=== PATIENT | male | born 1965 | race Caucasian/White ===

== ENCOUNTER → 2020-03-28 10:58 | Outpatient (CLI) | payer BC, SELFPAY ==
[2020-03-28 10:43] VITALS: BMI 31.3
--- NOTE | 2020-03-28 11:00 | RAD_ITS ---
STUDY: X-RAY - RIGHT KNEE REASON FOR EXAM: Male, 54 years old. BILATERAL KNEE PAIN TECHNIQUE: 4 view(s) of the knee. COMPARISON: None. FINDINGS: Normal visualized distal femur. Normal visualized proximal tibia and fibula. Normal proximal tibiofibular articulation. Normal medial femorotibial compartment. Normal lateral femorotibial compartment. Normal patellofemoral articulation. The soft tissue structures are unremarkable. RAD/Knee 4 or More Views IMPRESSION: Normal x-ray examination of the knee. Electronically Signed: Gerardo Coe MD at 17:41 EDT , Service support ,
--- NOTE | 2020-03-28 11:00 | RAD_ITS ---
STUDY: X-RAY - LEFT KNEE REASON FOR EXAM: Male, 54 years old. BILATERAL KNEE PAIN TECHNIQUE: 4 view(s) of the knee. COMPARISON: None. FINDINGS: Normal visualized distal femur. Normal visualized proximal tibia and fibula. Normal proximal tibiofibular articulation. Normal medial femorotibial compartment. Normal lateral femorotibial compartment. Normal patellofemoral articulation. The soft tissue structures are unremarkable. RAD/Knee 4 or More Views IMPRESSION: Normal x-ray examination of the knee. Electronically Signed: Gerardo Coe MD at 17:41 EDT , Service support ,
== END ==
PROVIDERS: Referring Provider Orthopaedic Surgery; Visit Provider Orthopaedic Surgery
DX: M25.561 Pain in right knee (principal); M25.562 Pain in left knee
CPT/HCPCS: 73564

== ENCOUNTER → 2020-04-14 09:27 | Outpatient (CLI) | payer BC, SELFPAY ==
[2020-03-28 10:43] VITALS: BMI 31.3
--- NOTE | 2020-04-14 09:28 | MRI_ITS ---
STUDY: MRI LEFT KNEE REASON FOR EXAM: Medial knee pain for 5 years, no specific injury. TECHNIQUE: Standardized fat and water weighted pulse sequences were obtained in all 3 orthogonal planes. COMPARISON: Radiographs 03/28/2020. FINDINGS: There is a horizontal tear of the inferior articular surface of the posterior horn of the medial meniscus (proton-density coronal image 14; proton density sagittal images 11-15) with a very small parameniscal cyst (T2 sagittal image 9). Normal hyaline cartilage of the medial femorotibial compartment. Normal medial femoral condyle and tibial plateau. There is mild periligamentous inflammation of the medial collateral ligament (T2 coronal image 16). Normal distal semimembranosus, gracilis and semitendinosus tendons. Normal lateral meniscus. Normal hyaline cartilage of the lateral femorotibial compartment. Normal lateral femoral condyle and tibial plateau. Normal proximal tibiofibular articulation. Normal lateral collateral (fibular) ligament. Normal popliteus tendon. Normal biceps femoris tendon. Normal anterior cruciate ligament (ACL). Normal posterior cruciate ligament (PCL). Normal congruent patellofemoral articulation. Normal hyaline cartilage of the patellofemoral compartment. Normal medial and lateral patellar retinaculum. Normal visualized quadriceps tendon. Normal patellar tendon. Normal Hoffa''s fat pad. There is a very small joint effusion. There is a thin medial patellar plica. The soft tissues are unremarkable. There is a mostly osseous fused bipartite patella (proton density coronal image 29). MRI/Lower Ext Joint Only (Routine) IMPRESSION: Medial meniscal tear. Mild periligamentous inflammation of the medial collateral ligament. Very small joint effusion. Mostly osseous fused bipartite patella. Electronically Signed: Victor Manuel Anders MD at 11:22 EDT Tel , Service support ,
== END ==
PROVIDERS: Referring Provider Orthopaedic Surgery; Visit Provider Orthopaedic Surgery
DX: M23.92 Unspecified internal derangement of left knee (principal)
CPT/HCPCS: 73721

== ENCOUNTER 2020-04-26 05:22 | Day surgery (SDC) | payer BC, SELFPAY ==
[2020-03-28 10:43] VITALS: BMI 31.3
[2020-04-26] VITALS (8 sets, daily range): BP systolic 116–148; BP diastolic 76–107; PULSE 47–66; RESP 16; TEMP 36.1–36.6; O2SAT 93–100; BMI 33.3
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
[2020-04-26] MEDS: Lactated Ringers 1,000 ML 100 ML IV ×2 (09:00→10:41)
[2020-04-26] MEDS: Cefazolin 2 GM in 0.9% Normal Saline 100 ML IV (09:25)
[2020-04-26] MEDS: MethylPREDNISolone Acetate 80 MG/ML Vial (09:46)
[2020-04-26] MEDS: Epinephrine (1 mg/ml) 1 MG/ML VIAL (09:46)
[2020-04-26] MEDS: morphine PF (epidural) 5 MG/10 ML Vial (09:46)
[2020-04-26] MEDS: Bupiv/Epi 0.5% Mpf 30 ML Vial (09:46)
[2020-04-26] MEDS: Bupivacaine 0.5% PF 10 ML VIAL (09:46)
--- NOTE | 2020-04-26 10:19 | DCINST_ITS ---
Discharge Diet: No Restrictions Weight Bearing Status: Weight bearing as tolerated Keep extremity elevated above heart level: Operative Extremity Call your doctor if you observe: Shortness of breath, Chest pain Additional Instructions: Ice and elevate next 72 hours .keep dressing on clean and dry for 48 hours then may remove begin showering daily but do not submerge in tub or pool. After shower may apply Band-Aids . Encourage knee range of motion weightbearing as tolerated, use crutches until confident in knee then may discontinue. No strenuous activity. When not ambulating keep iced and elevated next 72 hours. Call with any questions or concerns. Allergies/Adverse Reactions: Allergies aspirin Allergy (Verified 04/26/20 07:41) nose bleed Medications to take at Discharge Oxycodone [Oxyir] 5 mg PO Q4H PRN PRN #30 tablet 04/26/20 The following prescriptions were given: Oxycodone [Oxyir] 5 mg PO Q4H PRN PRN #30 tablet PRN Reason: Pain Score 4-10/10 Transmission Status: Received by [facility]/pharmacy #[id number] Primary Care Physician: GRABIEL MACK [Other] Test Results: Test results from this visit will be discussed in further detail at your follow- up appointment, if applicable. Please Follow Up With: Juan Alberto Davila DO - 2 weeks
--- NOTE | 2020-04-26 10:21 | OP.PCM_ITS ---
Report of Operation Date of Procedure: 04/26/20 Description of Surgical Findings:: Preop diagnosis: Left knee complex medial meniscus tear posterior horn Postoperative diagnosis: Same Procedure: Left knee arthroscopic partial lateral meniscectomy posterior horn Anesthesia: General Estimated blood loss: 5 mL Tourniquet time: 25 minutes minutes 300 mmHg Complications: none Indication for procedure: 54-year-old male who had ongoing mechanical symptoms despite conservative treatment with MRI evidence of medial meniscus tear wish to proceed with an elective arthroscopic surgery to attempt to alleviate the symptoms. Risk benefits and alternatives of the procedure were reviewed including risk of bleeding infection nerve artery tissue damage need for further surgery continued pain and expected postoperative course. Procedure: The patient was met in the preoperative holding area. The operative extremity was identified by both patient and physician and family and marked. Patient was brought back to the operating room on a wheeled cart and transferred to the operating table in the supine position. Anesthesia was started. A well- padded tourniquet was placed on the operative extremity. A lower extremity leg solorzano was secured to the operative extremity. The contralateral extremity was well-padded and the end of the bed was flexed to 90 degrees. The patient was prepped and draped in the usual sterile fashion. A timeout was called to ensure the proper patient, procedure, and extremity were being contemplated. 0.5% Marcaine with epinephrine was injected into the planned incisional areas under the skin only. An Esmarch was used to exsanguinate the extremity and the tourniquet was inflated. An 11 blade scalpel was used to make a stab incision in the anterior lateral portal. The arthroscope was inserted into the intercondylar notch and inflow and outflow tubes were attached. Arthroscopic visualization began. The medial compartment was entered. An 18-gauge spinal needle was used to establish the placement for anterior medial portal. An 11 blade scalpel was used to make a stab incision. Blunt probe was inserted followed by a meniscal probe. The posterior horn medial meniscus did have horizontal and radial tearing the use of arthroscopic biting instruments and shaver partial medial meniscectomy was performed was not felt the tear had any repairable features the ACL was found to be intact. The lateral compartment was entered free of meniscal or cartilage pathology The arthroscope was switched to the medial portal to complete the procedure. The medial and lateral gutters were inspected and . The patellofemoral joint was inspected possible early grade 1-2 changes of the apex of the patella. There was good patellar tracking. The knee was thoroughly irrigated and drained. An intra-articular injection with 5 cc 0.5% Marcaine plain 2.5 mg of morphine and 40 mg of Depo-Medrol was injected intra-articularly. The arthroscope was removed the portals were closed with 3-0 nylon arthroscopic stitches. Followed by Xeroform 4 x 4's ABDs web roll and an Eric wrap. The tourniquet was let down and the drapes were removed. All counts were correct. The patient was brought back to the PACU in stable condition.
[2020-04-26] MEDS: oxyCODONE 5 MG Tablet PO (11:40)
== END 2020-04-26 12:29 | disposition home or self-care (01) ==
LOC: SDC 05:25 → AC 05:25
PROVIDERS: Anesthesiology; Referring Provider Orthopaedic Surgery; Visit Provider Orthopaedic Surgery
PROC: (CPT 29870; principal; 2020-04-26 09:45)
DX: M23.92 Unspecified internal derangement of left knee (principal); M17.11 Unilateral primary osteoarthritis, right knee; Z79.1 Long term (current) use of non-steroidal anti-inflammatories (NSAID); Z88.6 Allergy status to analgesic agent
CPT/HCPCS: 01400; 29881; 87635; 94799; J7120; J2405; U0003

== ENCOUNTER → 2020-06-13 10:56 | Outpatient (CLI) | payer BC, SELFPAY ==
[2020-05-09 08:28] VITALS: BMI 33.3
--- NOTE | 2020-06-13 11:00 | CT_ITS ---
STUDY: CT RIGHT KNEE WITHOUT CONTRAST REASON FOR EXAM: Male, 54 years old. OSTEOARTHRITIS OF RIGHT KNEE RADIATION DOSAGE (If Supplied By Facility): CTDIvol = ( 18.76 ) mGy, DLP = ( 1255.95 ) mGycm TECHNIQUE: Transaxial CT imaging of the knee was performed. Coronal and sagittal images were reformatted. Individualized dose optimization techniques were used for this CT. COMPARISON: None. FINDINGS: Imaging of the right hip joint was obtained as well. No significant joint space narrowing. No evidence of fracture dislocation. Normal medial femoral condyle and medial tibial plateau. Mild degree of joint space narrowing of the medial compartment of the knee joint. Normal lateral femoral condyle and lateral tibial plateau. There is preservation of the articular joint space of the lateral knee compartment. Normal proximal tibiofibular articulation. There is no joint effusion. The quadriceps tendon is grossly normal. The patellar tendon is grossly normal. Normal Hoffa''s fat pad. The soft tissues are unremarkable. CT/Extremity Lower without Contra IMPRESSION: Mild degree of joint space narrowing involving the medial compartment of the knee joint. Electronically Signed: Beto Marc, at 12:33 EDT , Service support ,
== END ==
PROVIDERS: Referring Provider Orthopaedic Surgery; Visit Provider Orthopaedic Surgery
DX: M17.11 Unilateral primary osteoarthritis, right knee (principal)
CPT/HCPCS: 73700

== ENCOUNTER 2020-07-12 05:22 | Day surgery (SDC) | payer BC, SELFPAY ==
[2020-05-09 08:28] VITALS: BMI 33.3
[2020-07-01 08:09] VITALS: BMI 33.3
--- NOTE | 2020-07-01 11:59 | EKG12_ITS ---
Test Reason : PREOP Blood Pressure : / mmHG Vent. Rate : 050 BPM Atrial Rate : 050 BPM P-R Int : 168 ms QRS Dur : 084 ms QT Int : 430 ms P-R-T Axes : 023 018 017 degrees QTc Int : 392 ms Sinus bradycardia Otherwise normal ECG Confirmed by REENA POE, AMAIRANI ([id number]), film or videotape editor CORBIN REYES ([id number]) on 07/06/2020 10:52:10 AM Referred By: Juan Alberto Davila Confirmed By:SHIRLEY VALLES MD
[2020-07-01 12:50] LABS: Absolute Lymphocyte Count 1.66 X10^3/uL (0.83-4.51); Absolute Neutrophil Count 3.2 X10^3/uL (2.0-7.7); Basophil# 0.02 X10^3/uL; Basophil% 0.4 % (0-1); Eosinophil# 0.03 X10^3/uL; Eosinophils% 0.5 % (0-5); Hematocrit 45.3 % (40-54); Lymphocyte # 1.66 X10^3/ul (4.0); Lymphocyte % 30.4 % (19-41); Mean Corp Hgb Conc 33.1 g/dL (32-36); Mean Corpuscular Hgb 28.8 pg (27.0-32.0); Mean Corpuscular Volume 87.1 fL (80-94); Mean Platelet Vol. 9.2 fl (6.2-12.0); Monocyte# 0.54 X10^3/uL; Monocyte% 9.9 % (0-10); NRBC Flagged by Analyzer 0 % (0-5); Neutrophil # 3.19 X10^3/uL (2.7-7.7); Neutrophil % 58.4 % (47-70); Platelet Count 198 K/mm3 (150-450); RBC Distribution Width CV 12.5 % (11.6-14.6); RBC Distribution Width SD 39.7 fl (35.1-43.9); White Blood Count 5.5 K/mm3 (4.4-11.0)
[2020-07-01 13:01] LABS: Prothrombin Time (Protime)PT. 12.9 SECONDS (11.7-14.9)
[2020-07-01 13:02] LABS: Partial Thromboplast Time 27.9 Seconds (24.1-36.2)
[2020-07-01 13:18] LABS: Anion Gap 3 (5-15); BUN 18 mg/dL (7-18); BUN/Creat Ratio 17.6 RATIO (10-20); Calcium,Total 8.8 mg/dL (8.5-10.1); Chloride 107 mmol/L (98-107); Creatinine, Serum 1.02 mg/dL (0.70-1.30); EST Glomerular Filtration Rate 81 mL/min (>60); Est Glom Filt Rate - Afr Amer 98 mL/min (>60); Glucose 84 mg/dL (74-106); Potassium 3.8 mmol/L (3.5-5.1); Sodium Level 139 mmol/L (136-145)
[2020-07-01 13:25] LABS: Magnesium 2.2 mg/dL (1.6-2.6)
[2020-07-12] VITALS (10 sets, daily range): BP systolic 114–136; BP diastolic 69–99; PULSE 50–98; RESP 16; TEMP 36.2–36.7; O2SAT 93–99; BMI 34.5
[2020-07-12] MEDS: Lactated Ringers 1,000 ML 100 ML IV (06:08)
[2020-07-12] MEDS: Scopolamine 1mg/72hr Patch 1 PATCH TRANSDERM. (06:09)
[2020-07-12] MEDS: Acetaminophen 500 MG Tablet 1000 MG PO ×2 (06:10→14:05)
[2020-07-12] MEDS: Gabapentin 600 MG Tablet PO (06:10)
[2020-07-12] MEDS: Celecoxib 200 MG Capsule 400 MG PO (06:10)
[2020-07-12 06:51] LABS: Bedside Glucose 131 mg/dL (70-110)
[2020-07-12] MEDS: Cefazolin 2 GM in 0.9% Normal Saline 100 ML IV (07:15)
--- NOTE | 2020-07-12 07:16 | HP.PCM_ITS ---
History and Physical Date of Admission: 07/12/20 Intake Vital Signs 07/01/20 BMI 33.3 Intake Visit Reasons: right knee Allergies aspirin Allergy (Verified 06/28/20 12:05) nose bleed PFSH Medical History (Updated 07/01/20 @ 11:06 by Maria De Jesus Aviles) Hx of gout (Inactive) Social History (Updated 07/01/20 @ 11:[address] Juan Alberto Davila DO) Smoking Status: Never smoker HPI right knee: Details: Parts of this documentation were recorded by a scribe, this documentation accurately reflects the service provided and the decisions made by me, Dr. Juan Alberto Davila DO 07/01/20 0809. ZACARIAS BROWN is a 54 year old M here today for right knee IOVERA treatment. Patient is here for the treatment today and he is here to sign surgery for the right total knee. DOS is scheduled for 07/12/2020. Patient continues to have right knee pain. Denies numbness, tingling or other associated symptoms. ROS Musc Reports joint pain, Reports joint swelling, Reports limited joint movement, Denies numbness, Denies radiating pain into limb, Reports stiffness, Denies tingling Skin/Breast Denies lesions, Denies rash, Denies skin pain, Denies skin swelling Neuro No numbness, No tingling Ortho Exam Right Knee Skin/Wound: No erythema, No ecchymosis, No swelling Homans Sign: No Knee ROM: Yes ROM-Extension -20 to 0, Yes ROM-Flexion 0-140 Examination: No Med jt line tenderness, No Lat jt line tenderness, No Harry's Test Stability: NML: Anterior Drawer, NML: Posterior Drawer, NML: Valgus 30, 1+: Varus 30 Patella Translation: 1 Patella Grind: Yes KNEE: There is pain with patellar grind Left Knee Date of Surgery: 04/26/20 Skin/Wound: Yes ecchymosis (faint fadding), No erythema, No swelling Knee ROM: Yes ROM-Extension -20 to 0, No ROM-Flexion 0-140 (100) Patella Translation: 1 KNEE: no joint effusion no s/sx of infection Office Procedures Iovera Details:: Preoperative diagnosis :right knee OA Postoperative diagnosis: Same Procedure: Cryotherapy with Iovera device to anterior femoral cutaneous nerve and 2 branches of the infrapatellar saphenous nerve III nerves in total Description of procedure: Patient was brought back to the procedure room the operative extremity was identified by both patient and physician. The PIP flexion crease was measured to the midpoint of the patella and this distance was divided in 3 resulting in 10 cm location proximal to the midpoint of the willson la. This line was extended medial and lateral to the extent of the edges of the patella. This was our treatment line for the anterior femoral cutaneous nerve. A second treatment line was made 5 cm medial to the inferior pole of the patella and 5 cm distally. The leg was prepped with alcohol and Betadine. Lidocaine with epi was used along the treatment lines. Using the Iovera device treatment lines were treated with 1 minute cycles. Reproduction of paresthesias was monitored in the area of nerve distribution. Once all 3 nerves were treated across the 2 treatment lines patient was cleaned and a light dressing with 4 x 4 and Eric wrap was applied. Patient tolerated the procedure without complication. Supplemental Info 03/28/2020 x-ray right knee: Moderate medial joint space narrowing 03/28/2020 x-ray left knee: Preserved joint spaces sunrise view demonstrates possible old fracture of the lateral patellar facetPreserved joint spaces sunrise view demonstrates possible old fracture of the lateral patellar facetThat is united Assessment & Plan Problems 1. Chronic pain of right knee M25.561; G89.29 Plan Patient wishes to proceed with IOVERA treatment today. Risks, benefits and alternatives of surgery reviewed including but not limited to bleeding, infection, nerve, artery and/or tissue damage, fracture, VTE, mechanical feel of the knee, continued pain, stiffness and expected post-operative course. Patient wishes to proceed with signing surgery consent today. He will not have to spend the night at the hospital the day of surgery. Follow up 2 weeks post op or sooner if pain, swelling, numbness or associated symptoms, or concerns develop. All questions answered. Patient in agreement of plan. Orders Orders: Iovera Today M25.569 Coding Level of Care Code Attention Gautam Diagnoses Chronic pain of right knee M25.561; G89.29 ??Laterality: right I have re-examined the patient. There are no clinical changes since date of exam Procedure Criteria Procedure Type: Elective COVID Risk Discussion: The surgeon/proceduralist and patient have discussed in detail the risk of exposure to and/or potential harm posed by the COVID-19 virus with having a surgery/procedure at this time versus the risk of delaying the surgery/procedure. It is not possible to know either the risk of delaying the surgery or procedure or chance of getting an infection with perfect accuracy, but a joint decision was made between the patient and the surgeon/proceduralist to proceed at this time with the scheduled surgery/procedure as indicated on the consent form.
[2020-07-12] MEDS: dexAMETHasone 10 MG/ML Vial IV (07:40)
[2020-07-12] MEDS: Betamethasone/Betamethasone 30 MG/5 ML Vial (08:48)
[2020-07-12] MEDS: Epinephrine (1 mg/ml) 1 MG/ML VIAL (08:48)
[2020-07-12] MEDS: 0.9% Normal Saline (Pres. free 10 ML Vial (08:48)
[2020-07-12] MEDS: Bupivacaine Mpf 0.5% 30 ML VIAL (08:48)
--- NOTE | 2020-07-12 09:16 | RAD_ITS ---
STUDY: X-RAY - RIGHT KNEE REASON FOR EXAM: Postop right total knee arthroplasty. TECHNIQUE: 2 view(s) of the knee. COMPARISON: Radiographs 03/28/2020. FINDINGS: There is a right total knee arthroplasty without evidence of complication. There is postoperative gas in the soft tissues and overlying skin kasey. RAD/Knee 1 or 2 Views IMPRESSION: Uncomplicated right total knee arthroplasty. Electronically Signed: Victor Manuel Anders MD at 10:44 EDT Tel , Service support ,
--- NOTE | 2020-07-12 09:19 | PCM.DC.ORTHO ---
Discharge Diet: No Restrictions Weight Bearing Status: Weight bearing as tolerated Call your doctor if you observe: Shortness of breath, Chest pain Additional Instructions: Ice and elevate one week while not ambulating. Ambulation is encouraged. Weightbearing as tolerated. Use assistive devise for stability. Encourage FULL knee extension and flexion 1 time EVERY time you get up and down and MULTIPLE times per day. No showering 72 hours after surgery. Begin showering postop day #3. Remove the dressing prior to shower and gently wash with warm water and antibacterial soap then pat dry and place abdominal pad (or plain gauze) and ARASELI hose over top. This is to be done daily. Do not submerge for 3 weeks. If not showering daily after the initial 72 hours then you must clean incision and change dressing daily. Do not allow animals near the incision area. Keep clean. Follow anticoagulation recommendations as prescribed. Do not take any NSAIDs while on blood thinner. Do not take any additional narcotic pain medication other than what was prescribed on you surgery day without discussing with physician. Start physical therapy. If you are not currently scheduled for physical therapy or you are unsure of appointment time please call office [facility] to arrange. Call Dr. Davila with any concerns. Allergies/Adverse Reactions: Allergies aspirin Allergy (Verified 07/12/20 05:56) nose bleed Medications to take at Discharge Acetaminophen [Tylenol Extra Strength] 1,000 mg PO Q6H PRN #100 tab 07/12/20 Apixaban [Eliquis] 2.5 mg PO BID #30 tab 07/12/20 Cephalexin [Keflex] 1,000 mg PO Q8 #4 cap 07/12/20 Ondansetron HCl [Zofran] 4 mg PO Q6H PRN PRN 5 Days #20 tab 07/12/20 Oxycodone [Oxyir] 5 mg PO Q4H PRN PRN #60 tablet 07/12/20 The following prescriptions were given: Apixaban [Eliquis] 2.5 mg PO BID #30 tab Transmission Status: Pending to [facility] Cephalexin [Keflex] 1,000 mg PO Q8 #4 cap Transmission Status: Pending to [facility] Oxycodone [Oxyir] 5 mg PO Q4H PRN PRN #60 tablet PRN Reason: Pain Score 6-10 Transmission Status: Sent to [facility] Acetaminophen [Tylenol Extra Strength] 1,000 mg PO Q6H PRN #100 tab Transmission Status: Pending to [facility] Ondansetron HCl [Zofran] 4 mg PO Q6H PRN PRN 5 Days #20 tab PRN Reason: Nausea Transmission Status: Pending to [facility] Primary Care Physician: Care Physician,No Primary [Primary Care Provider] - Test Results: Test results from this visit will be discussed in further detail at your follow-up appointment, if applicable. Please Follow Up With: Juan Alberto Davila DO - 2 weeks
--- NOTE | 2020-07-12 09:21 | OP.PCM_ITS ---
Report of Operation Date of Procedure: 07/12/20 Description of Surgical Findings:: Preoperative diagnosis: Right knee DJD Postoperative diagnosis: Same Procedure: Right total knee arthroplasty CT guided Robotic Assisted Implant: Michelle triathlon press fit femoral component size 4, press-fit tibial baseplate size 5, press fit asymmetric patella size 35, polyethylene X3 size 9 CS Anesthesia: Spinal with adductor canal block Tourniquet time: 13 minutes at 300 mmHg Complications: None Condition: Stable to PACU Estimated blood loss: 125 cc Indication for procedure: This is a 54-year-old male with long standing degenerative joint disease of the knee who has failed conservative treatment and wished to proceed with elective total knee arthroplasty. Risk benefits and alternatives were reviewed including; risk of bleeding, infection, nerve artery and tissue damage, continued pain, postoperative stiffness, venous thromboembolism, need for postoperative rehabilitation, mechanical feel to the knee, and expected postoperative course. The operative CT and templating was performed with component sizing Procedure: The patient was met in the preoperative holding area. The operative extremity was identified by both patient and physician and was marked. Patient was met by anesthesia. An adductor canal block was placed by anesthesia postoperatively the patient was brought back to the operating room on a wheeled cart and transferred to the operating table in the supine position. Anesthesia was started. A well-padded tourniquet was placed on the operative extremity. The patient was prepped and draped in the usual sterile fashion. A timeout was called to ensure the proper patient procedure and extremity were being contemplated. An Esmarch was used to exsanguinate the extremity. The tourniquet was inflated. A 10 blade scalpel was used to make a midline incision down through the skin and subcutaneous tissue. Skin retractors placed. Bovie was used to perform meticulous hemostasis. full-thickness flaps were elevated medial and lateral along the joint capsule. A deep blade scalpel was used to perform a medial parapatellar arthrotomy. The knee was brought to full extension. A Bovie was used to release the soft tissues off the most proximal aspect of the medial tibial plateau a three-quarter inch curved osteotome was also used for this process. The infrapatellar fat pad was excised. The fat pad was excised partially anterior lateral portion the anterior medial was elevated from the femur. At this point our intra-articular femoral array was placed of a 45 degree angle proximal and posterior to the medial epicondyle. Our tibial array was placed greater than 1 hands breath below the incision at a 20 degree angle stab incisions were used for this case were attached and checked with the robotic software. Tourniquet was let down. At this point registration cruz were taken throughout the knee as well as checkpoints placed in the femur and tibia once the knee was registered then tensioned the medial and lateral ligaments in extension and 90 degrees of flexion. We then used these numbers to adjust our components within parameters to balance the knee in both flexion and extension once this was done on our monitor we then proceeded with using the robotic arm to make our tibial plateau cut and anterior posterior and chamfer cuts on the femur we then trialed and achieved the desired plan with a well- balanced knee. Lug holes were drilled in the femur the tibia preparation was completed with a fin punch and the patella was prepared by first using a caliper to ensure sufficient bone stock and a patellar reamer to remove the desired amount of bone locals were drilled for an asymmetric poly-. We then brought the knee through range of motion with excellent patellar tracking. We thoroughly irrigated the knee with a trial components were removed a posterior capsular injection with her standard cocktail was performed the aqua Mantis was also used to aid in hemostasis. Betadine rinse was allowed to sit and washed out components were press-fit into place. Aricept rinse was then used followed by several more rate liters of irrigation after it was allowed to sit. Joint capsule was closed with #1 Ethibond [id number] followed by Vicryl in the subcutaneous tissues staple in the skin arrays and checkpoints were removed prior to closure all counts were correct stab incisions were closed with a stable standard dressing in the form of Mepilex for the main incision Xeroform 4 x 4 and Tegaderm over pin site holes. Thigh-high ARASELI hose applied over top of dressing. Patient tolerated the procedure well and was directed to PACU in stable condition no intraoperative complications
[2020-07-12] MEDS: Lactated Ringers 1,000 ML 125 ML IV (10:03)
[2020-07-12] MEDS: Cefazolin 1 GM/50 ML BAG IV (12:19)
== END 2020-07-12 14:30 | disposition home or self-care (01) ==
LOC: SDC 05:22 → AC 05:23
PROVIDERS: Anesthesiology; Referring Provider Orthopaedic Surgery; Visit Provider Orthopaedic Surgery
PROC: 0SRC0JZ Replacement of Right Knee Joint with Synthetic Substitute, Open Approach (ICD-10-PCS; CPT 27447; principal; 2020-07-12 06:45)
DX: M17.11 Unilateral primary osteoarthritis, right knee (principal); Z11.59 Encounter for screening for other viral diseases
CPT/HCPCS: 01402; 27447; S2900; 36415; 73560; 80048; 82962; 83735; 85025; 85610; 85730; 86850; 86900; 86901; 87081; 87635; 93005; 97162; C1776; C9803; J7120; J0702; J3490; U0003